=== PATIENT | male | born 1975 | race Caucasian/White ===

== ENCOUNTER 2022-11-03 07:52 | Day surgery (SDC) | payer OTHER ==
[~2022-11-03] VITALS: Ht 177.8 cm; Wt 91.5 kg
--- NOTE | 2022-11-03 10:18 | NUR ---
11/03/22 1018 Clarice Ramires PATIENT POSIONED ON GEL PADDED SCHNEIDER BAG. PILLOW UNDER HEAD, BETWEEN KNEES AND BETWEEN ARMS. 2 BED STRAPS. ARMS SECURED ON PADDED ARM BOARDS. RIGHT LATERAL POSITION FOR LEFT SCAPLULA. PATIENT THEN MOVED TO SUPINE, PREPPED AND RE DRAPED FOR RIGHT SHOULDER.
--- NOTE | 2022-11-03 11:36 | NUR ---
11/03/22 Karen6 Rupa Quintero PT IN RECLINER STATES PAIN HAS INCREASED TO A 4 AND WOULD LIKE SOMETHING FOR THE PAIN. PT EATING AND DRINKING AND CONVERSATING WITH NURSE.
== END 2022-11-03 12:20 | disposition home or self-care (01) ==
LOC: ORSCSDS 07:52
PROVIDERS: Orthopaedic Surgery
PROC: 0JBD0ZX Excision of Right Upper Arm Subcutaneous Tissue and Fascia, Open Approach, Diagnostic (ICD-10-PCS; principal; 2022-11-03 09:15)
PROC: 0JBF0ZX Excision of Left Upper Arm Subcutaneous Tissue and Fascia, Open Approach, Diagnostic (ICD-10-PCS; principal; 2022-11-03 09:15)
DX: D17.21 Benign lipomatous neoplasm of skin and subcutaneous tissue of right arm (principal); F17.210 Nicotine dependence, cigarettes, uncomplicated
CPT/HCPCS: 88304; A9270; J0171; J0690; J1100; J2250; J2405; J2704; J2795; J3010; J7120